=== PATIENT | male | born 1975 | race Caucasian/White ===

== ENCOUNTER 2022-09-03 08:04 | Emergency (ER) | payer OTHER, SELFPAY ==
[2022-09-03 08:07] VITALS: BP 123/81; PULSE 72; RESP 16; TEMP 36.6; O2SAT 99; BMI 28.2
--- NOTE | 2022-09-03 09:14 | ED_ITS ---
HPI - Eye Problem General Chief complaint: Eye Problems Stated complaint: sprayed in eyes w/chemical Time Seen by Provider: 09/03/22 09:04 Source: patient Mode of arrival: Ambulatory History of Present Illness HPI Narrative: Patient here for chemical exposure to his eyes. Patient works for [employer]. Patient was throwing trash into the garbage can, it punctured a chemical can. Best [place], AntiSpatter, active ingredient is methylene chloride. Patient in no distress. Patient does not wear contact lenses or eyeglasses. Poison control was contacted. Patient did use the eye wash station at work and thorax rinsed out his eyes. PH here is 7.0 for both eyes. Patient visual acuity is 20/40 for both eyes and together. Patient states did have blurry vision but has improved after eye wash at work. Still has a little discomfort in the left lower eyelid. Related Data Allergies Allergy/AdvReac Type Severity Reaction Status Date / Time cephalexin [From Keflex] Allergy Unknown Verified 09/03/22 08:11 Sulfa (Sulfonamide Allergy Unknown Verified 09/03/22 08:11 Antibiotics) Review of Systems Review of Systems Narrative: GENERAL: negative chills, fatigue, malaise, fever, sweats. HEENT: negative sinus pain, ear pain, sore throat, positive eye discomfort RESPIRATORY: negative dyspnea, cough CARDIOVASCULAR: negative chest pain, palpitations GASTROINTESTINAL: negative nausea, vomiting, abdominal pain : negative dysuria, frequency, hematuria MUSCULOSKELETAL: negative muscle or bony pain SKIN: negative rash, skin lesions NEUROLOGIC: negative weakness, numbness ROS Unobtainable: All systems reviewed & are unremarkable except as noted in HPI and below Patient History Medical History Psoriasis Social History Smoking Status: Former smoker Smoking Status: Former smoker alcohol intake frequency: 0-2 drinks per day Substance Use Type: does not use Exam Narrative Exam Narrative: GENERAL: in no distress, not toxic not dyspneic HEAD: Normocephalic. EYES: Pupils equal round, Pupils equal round, there is bilateral injected sclera and conjunctiva. No discharge. There is bilateral periorbital erythema and mild edema. No discharge.. No eye discharge bilaterally. PERRLA. EOMI. There is symmetric bilateral periorbital erythema but no vesicles, slit lamp used. No vesicles on the cornea or sclera or conjunctiva. No foreign body seen. PH litmus paper 7.0 each eye ENT: Mucous membranes moist. NEURO: AOx4. SKIN: Warm and dry PSYCH: Not anxious, is cooperative Initial Vital Signs Initial Vital Signs: Vital Signs Temperature 97.8 F 09/03/22 08:07 Pulse Rate 72 09/03/22 08:07 Respiratory Rate 16 09/03/22 08:07 Blood Pressure 123/81 09/03/22 08:07 Pulse Oximetry 99 09/03/22 08:07 Oxygen Delivery Method Room Air 09/03/22 08:07 Course Vital Signs Vital signs: Vital Signs - 8 hr 09/03/22 08:07 09/03/22 09:42 Temperature 97.8 F Pulse Rate 72 70 Respiratory Rate 16 12 Blood Pressure 123/81 120/72 Pulse Oximetry 99 99 Oxygen Delivery Method Room Air Room Air MDM - Eye Problem MDM Narrative Medical decision making narrative: Patient here for chemical exposure to his eyes. Patient works for [employer]. Patient was throwing trash into the garbage can, it punctured a chemical can. [employer], AntiSpatter, active ingredient is methylene chloride. Patient in no distress. Patient does not wear contact lenses or eyeglasses. Poison control was contacted. Patient did use the eye wash station at work and thorax rinsed out his eyes. PH here is 7.0 for both eyes. Patient visual acuity is 20/40 for both eyes and together. Patient states did have blurry vision but has improved after eye wash at work. Still has a little discomfort in the left lower eyelid. After history and exam pH limits paper slit-lamp MDM CC: Eye irritation Complicating co-morbidities: None Data collected from: Patient Medical records reviewed: Not seen here in the past for this complaint Differential considered: Includes but not limited to contact dermatitis chemical conjunctivitis chemical burn Exam documented above, pertinent findings include: Periorbital erythema/injected sclera and conjunctiva Consultations: Appropriate for outpatient follow up with Ophthalmology, poison control was contacted, supportive care. Irrigation completed. Visual acuity done. Pain controlled. Treatments: Patient already had eye irrigation prior to arrival at work at the eye station Re-evaluations: Reviewed results with patient, return precautions reviewed with patient. Work note provided for today. Ophthalmology follow-up referral given. Discussion: Appropriate for discharge home. Exam is reassuring. Poison control already contacted. Referral for Ophthalmology provided. Slit-lamp completed. Is reassuring as well as fundoscopy. Diagnosis: Contact dermatitis, chemical conjunctivitis Discharge Plan Departure Patient Disposition: Home Clinical Impression: Acute chemical conjunctivitis of both eyes, Contact dermatitis Instructions: DI for Contact Dermatitis, DI for Chemical Eye Burn Activity Restrictions/Additional Instructions: Please see provided ophthalmology office for re-evaluation of your eye injury. Call today for office appointment. L and I forms have been completed. Work note provided for today. May use cool warm compresses to the eyes for comfort and swelling. Return immediately if worse if any questions or concerns or if any trouble with your vision. Referrals: Karley Arauz MD [Physician] - Miscellaneous,MD Giselle [Primary Care Provider] - Stand Alone Forms: Patient Portal/API, Work Release Note
--- NOTE | 2022-09-03 09:15 | PC.NURSE ---
Poison control contacted: Discussed case. Direct contact can cause vargas to cornea & skin. Eyes should be checked for injury / vargas. No further treatment orders.
[2022-09-03 09:42] VITALS: BP 120/72; PULSE 70; RESP 12; O2SAT 99
== END 2022-09-03 09:42 | disposition home or self-care (01) ==
PROVIDERS: Emergency Provider Emergency Medicine
DX: T53.4X Toxic effects of dichloromethane (principal); H10.213 Acute toxic conjunctivitis, bilateral; L25.9 Unspecified contact dermatitis, unspecified cause; Y99.0 Civilian activity done for income or pay
CPT/HCPCS: 99281; 99282